=== PATIENT | male | born 1990 | race Caucasian/White ===

== ENCOUNTER 2017-03-05 00:51 | Emergency (ER) | payer SELFPAY ==
[~2017-03-05] VITALS: Ht 198.1 cm; Wt 127.3 kg
[2017-03-05 00:53] VITALS: BP 150/86
[2017-03-05 01:38] LABS: BASO % 0.4 % (0.0-2.0); EOS # 0.1 (0.0-0.7); EOS % 1.2 % (0-4.0); GRAN % 72.9 % (42.2-75.2); HEMATOCRIT 43.6 % (42.0-52.0); LYMPH # 1.3 (1.2-3.4); MEAN CELL VOLUME 89 fl (80.0-100.0); MEAN CORPUSCULAR HEMOGLOBIN 31 pg (27.0-31.0); MEAN CORPUSCULAR HGB CONC 34 g/dl (33.0-37.0); MEAN PLATELET VOLUME 8.7 fl (7.4-10.4); MONO # 0.8 (0.1-0.6); MONO % 9.3 % (1.7-9.3); PLATELET COUNT 291 K/mm3 (130-400); RED BLOOD COUNT 4.91 M/mm3 (4.20-5.60); WHITE BLOOD COUNT 8.3 K/mm3 (4.8-10.8)
[2017-03-05 01:48] LABS: ACETAMINOPHEN 15 ug/mL (10-30); ADJUSTED CALCIUM 9.1 mg/dL (8.4-10.2); ALANINE AMINOTRANSFERASE 71 U/L (21-72); ALBUMIN 4.2 gm/dL (3.5-5.0); ALKALINE PHOSPHATASE 102 U/L (50-136); ANION GAP 12 mmol/L (7-16); BILIRUBIN,TOTAL 0.6 mg/dL (0.0-1.0); BLOOD UREA NITROGEN 8 mg/dL (9-20); CALCIUM 9.3 mg/dL (8.4-10.2); CARBON DIOXIDE 23 mmol/L (22-30); CHLORIDE 105 mmol/L (98-107); CREATININE, serum 0.92 mg/dL (0.66-1.25); GLUCOSE 138 mg/dL (74-106); POTASSIUM 4.2 mmol/L (3.4-5.0); SODIUM 140 mmol/L (137-145); TOTAL PROTEIN 7.4 gm/dL (6.4-8.2)
[2017-03-05 01:49] LABS: SALICYLATE < 1.0 mg/dL
[2017-03-05 02:05] VITALS: TEMP 98.7
[2017-03-05] MEDS ORDERED: ZITHROMAX 250M250 MG PO (02:16)
[2017-03-05 02:30] VITALS: PULSE 99
== END 2017-03-05 02:30 | disposition home or self-care (01) ==
LOC: COL.ER 00:51
PROVIDERS: Emergency Medicine
DX: J20.9 Acute bronchitis, unspecified (principal); R11.0 Nausea